=== PATIENT | male | born 1985 | race Caucasian/White ===

== ENCOUNTER 2023-01-11 10:38 | Outpatient (AMB) | payer OTHER, SELFPAY ==
--- NOTE | 2023-01-11 10:47 | MHC.OFFWIV ---
Intake Vital Signs 01/11/23 10:50 Height 5 ft 7 in Weight 171 lb BMI 26.8 BP 126/74 Blood Pressure Location Lt brachial Position Sitting Pulse 65 Pulse Source Pulse Oximeter Temp 98.2 F Temp Source Temporal Artery Scan Pulse Oximetry (%) 99 Oxygen Delivery Method Room Air Intake Visit Reasons: [employer]/strep ? Intake Note: pt is here for c/o possible strep, child is positive for strep, pt states he has been having low grade fever Patient Tobacco Use Status: Never used Tobacco Allergies No Known Allergies Allergy (Verified 01/11/23 10:51) Do you need a note to return to daycare/school/sports/work: No HPI [employer]/strep ? HPI Details 37-year-old male presents to the office for a sick visit. Patient reports that his son was diagnosed with strep a week and half ago as slowly improving. He started getting a symptoms of sore throat a few days ago. No other symptoms of cold or sinus congestion. Last night his left eye started tearing. He does not wear contact lenses. [facility] Social History Patient Tobacco Use Status: Never used Tobacco Physical Exam Vital Signs: Last Vital Signs Temp 98.2 F 01/11/23 10:50 Pulse 65 01/11/23 10:50 BP 126/74 01/11/23 10:50 Pulse Ox 99 01/11/23 10:50 Oxygen Delivery Method Room Air 01/11/23 10:50 BMI result Body Mass Index 26.8 Const General: cooperative and healthy appearing Nutritional Appearance: well nourished Orientation/consciousness: patient oriented x3 Limitations: no limitations HEENT Other: Left eye: Mild conjunctival congestion. No fluoro uptake. Head: Yes normal to inspection Eyes General: appearance normal, both eyes and all related structures Neck Neck: Yes normal visual inspection Chest Chest palpation & inspection: normal palpation of entire chest wall Resp Effort & Inspection: normal respiratory effort Neuro General: patient oriented x3 Results AMB Rapid Strep AMB Rapid Strep Negative Last Edit by Zeeshan Floyd CMA on 01/11/23 10:59 Results Reviewed Results Reviewed: Laboratory Last Values Strep Scn [facility] Negative 01/11/23 10:55 Assessment & Plan Assessment & Plan (1) Upper respiratory tract infection: Code(s): J06.9 - Acute upper respiratory infection, unspecified Plan: Strep test is negative. Viral upper respiratory infection. No antibiotics needed. Saltwater gargling. Eye symptoms should resolve on its own. Orders: Orders AMB Rapid Strep Screen Today Z13.9 - Encounter for screening, unspecified Coding Level of Care Code Est Pt Level 3 (55238) Diagnoses Upper respiratory tract infection J06.9
[2023-01-11 10:50] VITALS: BP 126/74; PULSE 65; TEMP 36.8; O2SAT 99; BMI 26.8
== END 2023-01-11 12:03 | disposition home or self-care (01) ==
PROVIDERS: PCP Emergency Medicine; Visit Provider Internal Medicine
DX: J06.9 Acute upper respiratory infection, unspecified (principal)
CPT/HCPCS: 87880; 99213